=== PATIENT | male | born 1990 | race American Indian/Alaskan Native ===

== ENCOUNTER 2017-11-28 10:18 | Emergency (ER) | payer SELFPAY ==
[2017-11-28 10:55] LABS: Basophils # (Auto) 0.1 K/mm3 (0.0-0.1); Basophils % (Auto) 0.8 % (0.0-1.8); Eosinophils # (Auto) 0.1 K/mm3 (0.0-0.4); Eosinophils % (Auto) 1.9 % (0.0-4.3); Hematocrit 46.4 % (35.5-45.6); Hemoglobin 16.2 gm/dl (11.8-15.2); Lymphocytes # (Auto) 1.9 K/mm3 (1.2-5.4); Lymphocytes % (Auto) 29.9 % (13.4-35.0); Mean Corpuscular HGB Conc 35 % (32-34); Mean Corpuscular Hemoglobin 31 pg (28-32); Mean Corpuscular Volume 88 fl (84-94); Monocytes # (Auto) 0.5 K/mm3 (0.0-0.8); Monocytes % (Auto) 7.8 % (0.0-7.3); Platelet Count 235 K/mm3 (140-440); Red Blood Count 5.29 M/mm3 (3.65-5.03); Red Cell Distribution Width 14.8 % (13.2-15.2)
[2017-11-28 11:17] LABS: BUN/Creatinine Ratio 9; Blood Urea Nitrogen 6 mg/dL (9-20); Calcium 9.4 mg/dL (8.4-10.2); Hemolysis Index 13
--- NOTE | 2017-11-28 12:14 | Emergency Department Report ---
HPI - General Chief Complaint: Psych Time Seen by Provider: 11/28/17 11:15 - HPI HPI: 27-year-old male presents to the emergency department with complaint of depression and suicidal thoughts. Patient says that he was in a nursing home house for mental illness and substance abuse for the past 2-1/2-3 weeks. [address] [facility] was called [facility] emergency department. He says that they were supposed to assist in getting his medications and even helping with job placement but he says that they just took his money and did not provide any of their services. He therefore says that he has not been getting his Celexa, BuSpar, Vistaril or trazodone. Over the past few days he has been having suicidal thoughts. When asked if he has a plan he says that there is "always traffic around and I could always welcome front of a [employer] bus. He denies any past medical history. He denies any homicidal ideations or any hallucinations. He is a tobacco smoker. He does have a history of alcohol use but nothing over the past few days. ED Past Medical Hx - Past Medical History Previous Medical History?: Yes Additional medical history: Anxiety/depression. - Surgical History Past Surgical History?: No - Social History Smoking Status: Current Every Day Smoker Substance Use Type: None ED Review of Systems ROS: Stated complaint: MENTAL EVAL Other details as noted in HPI Comment: All other systems reviewed and negative Constitutional: denies: chills, fever Eyes: denies: eye pain, eye discharge, vision change ENT: denies: ear pain, throat pain Respiratory: denies: cough, shortness of breath, wheezing Cardiovascular: denies: chest pain, palpitations Gastrointestinal: denies: abdominal pain, nausea, diarrhea Genitourinary: denies: urgency, dysuria Musculoskeletal: denies: back pain, joint swelling, arthralgia Skin: denies: rash, lesions Neurological: denies: headache, weakness, paresthesias Psychiatric: depression, suicidal thoughts. denies: auditory hallucinations, visual hallucinations, homicidal thoughts Physical Exam - Physical Exam Vital Signs: Vital Signs 11/28/17 10:26 Temperature 98.0 F Pulse Rate 64 Respiratory 16 Rate Blood Pressure 134/93 O2 Sat by Pulse 100 Oximetry Physical Exam: GENERAL: The patient is well-developed well-nourished. HENT: Normocephalic. Atraumatic. Patient has moist mucous membranes. EYES: Extraocular motions are intact. Trachea is midline. NECK: Supple. No meningitic signs are noted. There is no adenopathy noted. CHEST/LUNGS: Clear to auscultation. There is no respiratory distress noted. HEART/CARDIOVASCULAR: Regular. There is no tachycardia. There is no murmur. ABDOMEN: Abdomen is soft, nontender. Patient has normal bowel sounds. There is no abdominal distention. SKIN: Skin is warm and dry. NEURO: The patient is awake, alert, and oriented. The patient is cooperative. The patient has no focal neurologic deficits. The patient has normal speech. MUSCULOSKELETAL: There is no tenderness or deformity. There is no limitation range of motion. There is no evidence of acute injury. ED Course Vital Signs 11/28/17 10:26 Temperature 98.0 F Pulse Rate 64 Respiratory 16 Rate Blood Pressure 134/93 O2 Sat by Pulse 100 Oximetry ED Medical Decision Making - Lab Data Result diagrams: 11/28/17 10:39 11/28/17 10:39 - Medical Decision Making This patient presents with some depression, suicidal ideations since he has not been on his psychiatric medications for the past 2-1/2 weeks or so. No homicidal ideations or hallucinations. He is currently calm and appropriate. Labs have been mostly unremarkable thus far. Vital signs stable throughout his ED course. The patient is medically clear for psychiatric placement. He has been made a 1013 secondary to the suicidal ideations. He was seen by the psych automatic embroidery machine tender, , who agrees with the plan. - Differential Diagnosis depression, bipolar disorder, schizoaffective, substance abuse Critical Care Time: No Critical care attestation.: If time is entered above; I have spent that time in minutes in the direct care of this critically ill patient, excluding procedure time. ED Disposition Clinical Impression: Suicidal ideations Depression Qualifiers: Depression Type: unspecified Qualified Code(s): F32.9 - Major depressive disorder, single episode, unspecified Disposition: [id number]/[id number] PSY HOSP/PSY UNIT Is pt being admited?: No Condition: Stable Time of Disposition: 13:39
[2017-11-28] MEDS ORDERED: HABITROL TD ONE (13:37)
[2017-11-28 18:57] LABS: Bacteria,Urine 1+ /HPF (Negative); Bilirubin,Urine NEG (Negative); Blood,Urine NEG (Negative); Color,Urine Yellow (Yellow); Protein,Urine <15 mg/dL mg/dL (Negative); Sperm,Urine FEW /HPF (NP); Urobilinogen,Urine < 2.0 mg/dL (<2.0); WBC,Urine < 1.0 /HPF (0.0-6.0)
[2017-11-28 19:04] LABS: Amphetamine Screen,Urine PRESUMPTIVE NEGATIVE; Benzodiazepines Screen,Urine PRESUMPTIVE NEGATIVE; Cannabinoid Screen,Urine PRESUMPTIVE NEGATIVE; Cocaine Screen,Urine PRESUMPTIVE NEGATIVE; Methadone Screen,Urine PRESUMPTIVE NEGATIVE; Opiate Screen,Urine PRESUMPTIVE NEGATIVE
[2017-11-28] MEDS: DESYREL PO SCH (22:00)
[2017-11-29] MEDS: VISTARIL PO SCH ×3 (07:54→20:50)
[2017-11-29] MEDS: celeXA PO SCH (10:31)
[2017-11-29] MEDS: DESYREL PO SCH (21:32)
[2017-11-30] MEDS: VISTARIL PO SCH ×3 (09:00→22:42)
[2017-11-30] MEDS: celeXA PO SCH (09:00)
--- NOTE | 2017-11-30 20:18 | Consultation ---
History of Present Illness - Reason for Consult Consult date: 11/30/17 Reason for consult: psychiatric evaluation - Chief Complaint Chief complaint: "suicidal" Mr. Vargas is a 27 year old AA male seen for psychiatric evaluation in the ER. He presented complaining of suicidal ideation with plan to walk out into traffic. Information was obtained from the patient and the record. He states he feels the same as when he arrived. He has a history of depression and alcohol/ amphetamine dependence with recent inpatient treatment ([place] 10/2017). He has been staying at [facility] for 3 weeks and states they took his money. He admits relapse, drinking 3 bottles of wine 2 days ago. He denies any withdrawal symptoms at this time. He reports depression over the past two weeks , feeling unsafe, and thinking of killing himself by running out into traffic. He denies any history of prior attempt. He wants to be back on buspar. Medications and Allergies Allergies Allergy/AdvReac Type Severity Reaction Status Date / Time No Known Allergies Allergy Unverified 11/28/17 10:32 Home Medications Medication Instructions Recorded Confirmed Last Taken Type Citalopram [celeXA] 15 mg PO QDAY 11/28/17 11/28/17 Unknown History Trazodone HCl 150 mg PO QHS 11/28/17 11/28/17 Unknown History busPIRone [Buspar] 20 mg PO TID 11/28/17 11/28/17 Unknown History hydrOXYzine PAMOATE [Vistaril] 25 mg PO TID 11/28/17 11/28/17 Unknown History Active Meds: Active Medications Citalopram Hydrobromide (Celexa) 15 mg PO QDAY [facility] Last Admin: 11/30/17 09:00 Dose: 15 mg Hydroxyzine Pamoate (Vistaril) 25 mg PO TID [facility] Last Admin: 11/30/17 14:15 Dose: 25 mg Trazodone HCl (Desyrel) 150 mg PO QHS [facility] Last Admin: 11/29/17 21:32 Dose: 150 mg Past psychiatric history - past Psychiatric treatment and history Psych: Addictions, Depression - Social History Social history: other (homeless) Mental Status Exam - Vital signs Last Vital Signs Temp 97.5 F L 11/30/17 10:00 Pulse 69 11/30/17 10:00 Resp 20 11/30/17 10:00 BP 105/55 11/30/17 10:00 Pulse Ox 98 11/30/17 10:00 - Exam Orientation: time, place, person Affect: depressed, anxious Mood: congruent with affect Thought content: other (suicidal ideation with a plan. No HI) Thought Process: Intact Perceptions: none Speech: normal rate and pattern Concentration: focused Motor activity: normal Level of consciousness: alert Memory: Intact Sleep Symptoms: Difficulty Falling Asleep Appetite: decreased Interaction: cooperative Results Result Diagrams: 11/28/17 10:39 11/28/17 10:39 All other labs normal. Assessment and Plan Assessment and plan: Impression: major depressive disorder, severe anxiety disorder, unspecified suicidal ideation with a plan alcohol use disorder, no withdrawal. Risk of withdrawal is minimal at this time. Recommendation: Continue 1013 and transfer to inpatient psychiatric facility. meds were continued by ER provider: trazodone 150mg hs vistaril 25mg tid celexa 15mg daily for depression add buspar 5mg tid scheduled for anxiety. He usually takes 20mg tid but has not had any in 1 month.
[2017-11-30] MEDS: DESYREL PO SCH (22:42)
[2017-12-01] MEDS: VISTARIL PO SCH (08:50)
[2017-12-01] MEDS: BUSPAR PO SCH ×3 (10:00→22:49)
[2017-12-01] MEDS: celeXA PO SCH (10:25)
--- NOTE | 2017-12-01 13:29 | Progress Note ---
Subjective - Reason for Consult Consult date: 12/01/17 Reason for consult: Psychiatry Follow-up - Chief Complaint Chief complaint: "Hello" Mr. Vargas is a 27 year old AA male seen for psychiatric evaluation in the ER. He presented complaining of suicidal ideation with plan to walk out into traffic. Today the patient is calm and cooperative during the assessment. He stated that his SI's is "decreasing." He stated that he plan to stay medication compliant once discharged. He denies having a suicide plan. He denies any side effects of his medications. Mental Status Exam - Vital signs Last Vital Signs Temp 98.3 F 12/01/17 10:00 Pulse 76 12/01/17 10:00 Resp 18 12/01/17 10:00 BP 116/80 12/01/17 10:00 Pulse Ox 100 12/01/17 10:00 - Exam Narrative exam: MSE: Appearance: calm, cooperative Behavior: regular eye contact Speech: regular rate and tone Mood: "depressed" Affect: congruent to mood Thought Process: circumstantial Thought Content: denies HI's and AVH's Motor Activity: ambulatory Cognition: A/O x 3 Insight: variable Judgment: variable Assessment and Plan Impression: MDD, severe. Unspecified Anxiety DO. Alcohol Use DO. Today the patient is calm and cooperative during the assessment. Recommendation/Plan: Continue 1013 with placement to inpatient psy services. Continue home medications (Trazodone 150 mg PO HS, Vistaril 25 mg PO Q6hrs PRN, Celexa 15 mg PO daily, and Buspar 5 mg PO TID. Discussed piossible suicidality/ priapism/medication induce thierno with the patient reference Trazodone. Also, discussed possible suicidality/medication induced thierno with the patient reference Celexa.
[2017-12-01] MEDS: DESYREL PO SCH (22:49)
[2017-12-02] MEDS: BUSPAR PO SCH ×2 (09:00→20:27)
[2017-12-02] MEDS: celeXA PO SCH (10:15)
--- NOTE | 2017-12-02 13:42 | Progress Note ---
Subjective - Reason for Consult Consult date: 12/02/17 Reason for consult: Psychiatry Follow-up - Chief Complaint Chief complaint: "I'm well" Mr. Vargas is a 27 year old AA male seen for psychiatric evaluation in the ER. He presented complaining of suicidal ideation with plan to walk out into traffic. Today the patient is calm and cooperative during the assessment. He stated that he look forward to being discharged. He stated having a stable life is most important. He denies SI/HI's and AVH's. He denies any side effects of his medications. Mental Status Exam - Vital signs Last Vital Signs Temp 97.7 F 12/01/17 21:24 Pulse 64 12/01/17 21:29 Resp 18 12/01/17 21:24 BP 119/74 12/01/17 21:24 Pulse Ox 100 12/01/17 10:00 - Exam Narrative exam: MSE: Appearance: calm, cooperative Behavior: regular eye contact Speech: regular rate and tone Mood: "well" Affect: congruent to mood Thought Process: linear Thought Content: denies SI/HI's and AVH's Motor Activity: ambulatory Cognition: A/O x 3 Insight: appropriate Judgment: appropriate Assessment and Plan Impression: MDD, severe. Unspecified Anxiety DO. Alcohol Use DO. Today the patient is calm and cooperative during the assessment. The patient is no threa to self. Recommendation/Plan: Rescind 1013. Continue home medications (Trazodone 150 mg PO HS, Vistaril 25 mg PO Q6hrs PRN, Celexa 15 mg PO daily, and Buspar 5 mg PO TID. Discussed piossible suicidality/priapism/medication induce thierno with the patient reference Trazodone. Also, discussed possible suicidality/medication induced thierno with the patient reference Celexa. Discussed the importance to abstain from alcohol consumption (etoh). The patient can follow up with [facility] for outpatient psy/rehab services. The patient can be discharged in 24 hours. The patient's friend will pick him up tomorrow morning from the hospital.
[2017-12-02] MEDS: DESYREL PO SCH (22:25)
[2017-12-03] MEDS: BUSPAR PO SCH ×2 (07:39→09:33)
[2017-12-03] MEDS: celeXA PO SCH (09:33)
[2017-12-03 11:01] VITALS: BP 122/83
--- NOTE | 2017-12-03 14:40 | Emergency Department Report ---
Blank Doc - Documentation Documentation: Patient is a 27-year-old -[place] male who several days ago presented with suicidal ideations. The patient has been stable while here in the emergency department. Patient's been back on his meds. Patient was seen by psychiatry and they have rescinded the patient's 1013. Patient be discharged home with follow-up with Dr. Portillo Fulton.
== END 2017-12-03 15:00 | disposition home or self-care (01) ==
LOC: EEVIPCON 10:18 → ED 10:18
DX: F32.9 Major depressive disorder, single episode, unspecified (principal); F41.9 Anxiety disorder, unspecified; F17.200 Nicotine dependence, unspecified, uncomplicated
CPT/HCPCS: 36415; 80048; 80307; 81001; 85025; 99284; G0480; 80320; Q0177

== ENCOUNTER 2017-12-04 14:31 | Emergency (ER) | payer SELFPAY | END 2017-12-04 14:42 | disposition left against medical advice (07) | LOC: ED 14:31 | DX: R45.851 Suicidal ideations (principal); Z53.21 Procedure and treatment not carried out due to patient leaving prior to being seen by health care provider ==